=== PATIENT | female | born 1995 | race Caucasian/White ===

== ENCOUNTER 2016-12-10 13:11 | Emergency (ER) | payer BC, OTHER ==
[~2016-12-10 13:11] MED LIST: BACTRIM DS TABL1 TA1 PO; BENTYL10 MG PO; IRON1 TA1 PO; MACROBID100 MG PO; MOTRIN400 MG; NAPROXEN PO; ORUDIS75 M1 PO; PHENERGAN25 MG PO; PRENATAL VIT PO; PYRIDIUM PO; PYRIDIUM100 MG PO; TAMIFLU75 M1 PO; ZOFRANODT PO
[2016-12-26] MEDS ORDERED: NO MEDICATIONS (11:11)
== END 2016-12-10 13:15 | disposition home or self-care (01) ==
LOC: SED 13:11
DX: S86.911A Strain of unspecified muscle(s) and tendon(s) at lower leg level, right leg, initial encounter (principal); S86.912A Strain of unspecified muscle(s) and tendon(s) at lower leg level, left leg, initial encounter; X58.XXXA Exposure to other specified factors, initial encounter; Z88.0 Allergy status to penicillin; Z88.1 Allergy status to other antibiotic agents
CPT/HCPCS: 99282; 99283

== ENCOUNTER 2016-12-26 11:56 | Emergency (ER) | payer BC, OTHER ==
[~2016-12-26 11:56] MED LIST changes: +NO MEDICATIONS
[2016-12-26 13:26] LABS: URINE SOURCE CLEAN CATCH
[2016-12-26 13:30] LABS: URINE APPEARANCE CLEAR; URINE BILIRUBIN NEG (NEG); URINE BLOOD 2+ (NEG); URINE COLOR YELLOW; URINE GLUCOSE NEG (NORM); URINE KETONE NEG (NEG); URINE LEUKOCYTE ESTERASE NEG (NEG); URINE NITRATE NEG (NEG); URINE PROTEIN NEG (NEG); URINE SPECIFIC GRAVITY 1.025 (1.003-1.035); URINE UROBILINOGEN 0.2 MG/DL (NORM)
[2016-12-26 13:32] LABS: MICRO INDICATED? YES
[2016-12-26 13:47] LABS: URINE BACTERIA NEG (NEG); URINE RBC 0-2 /[HPF] (0-2); URINE SQUAMOUS EPITHELIAL CELL MODERATE /[HPF]; URINE WBC 0-2 /[HPF] (0-5)
== END 2016-12-26 14:37 | disposition home or self-care (01) ==
LOC: SED 11:56
PROVIDERS: Emergency Medicine
DX: K52.9 Noninfective gastroenteritis and colitis, unspecified (principal); Z88.0 Allergy status to penicillin; Z88.1 Allergy status to other antibiotic agents
CPT/HCPCS: 36415; 81003; 84703; 96361; 96374; 96375; 99284; J2405; J2765

== ENCOUNTER 2017-03-01 10:37 | Emergency (ER) | payer BC, OTHER ==
--- NOTE | ~2017-03-01 | CR230 ---
[facility] A Service of [facility] & [facility] RADIOLOGY TEXT RESULTS PATIENT: REMY CONN LOCATION: [facility] : 94 UNIT #: [id number] AGE: [address]: Maia Jovel SEX: F ORDER DR: [id number] [facility] [address] [place], [place] [address] [id number] E MR#: [id number] Acc #: [id number] NAME: REMY CONN. : 1995 SEX: F STUDY DATE/TIME: 03/01/2017 11:27 UNIT: [facility] ROOM: STUDY DESCRIPTION: CR Shoulder Min 2 View Rt Attending Physician: Maia Jovel Pa-C Ordering Physician: Eleazar Acosta M.D. Primary Care Physician: [facility], MEDICAL IMAGING REPORT This report is preliminary unless electronic signature is present EXAM Right shoulder series 03/01/2017 HISTORY Trauma. Pain in both shoulder and elbow, hurt at work. Twisted, got painful, kept working until unable to move it. Symptoms began today. TECHNIQUE AP internal and external rotation views of the right shoulder presented with transscapular view. FINDINGS No traumatic fracture or malalignment. Acromioclavicular and glenohumeral joint relationships appear normal. Periarticular soft tissues unremarkable. Visualized bony thorax intact. Visualized pulmonary parenchyma clear. If it would assist in patient management, shoulder could be further evaluated with elective MRI. Dictated by... Cosmo Jurado M.D. THIS IS AN ELECTRONICALLY VERIFIED REPORT Cosmo Jurado M.D. at 03/02/2017 6:42 PM WILLARD/ryder TD: 03/01/2017 13:29 JOB #: [id number] MEDICAL IMAGING REPORT Page 1 of 1 COPY
--- NOTE | ~2017-03-01 | CR94 ---
[facility] A Service of [facility] & [facility] RADIOLOGY TEXT RESULTS PATIENT: REMY CONN LOCATION: [facility] : 94 UNIT #: [id number] AGE: [address]: Maia Jovel SEX: F ORDER DR: [id number] [facility] [address] [place], [place] [address] [id number] E MR#: [id number] Acc #: [id number] NAME: REMY CONN. : 1995 SEX: F STUDY DATE/TIME: 03/01/2017 11:28 UNIT: [facility] ROOM: STUDY DESCRIPTION: CR Elbow Min 3 Views Rt Attending Physician: Maia Jovel Pa-C Ordering Physician: Eleazar Acosta M.D. Primary Care Physician: [facility], MEDICAL IMAGING REPORT This report is preliminary unless electronic signature is present EXAM Right elbow series, 03/01/2017. HISTORY Pain; hurt at work. Twisted, got painful, kept working until unable to move it. FINDINGS AP, lateral, and oblique radiographs of the right elbow are presented. Normal bony mineralization. Alignment normal. No fracture. Joint spaces intact. No traumatic malalignment. No acute soft tissue abnormality. Dictated by... Cosmo Jurado M.D. THIS IS AN ELECTRONICALLY VERIFIED REPORT Cosmo Jurado M.D. at 03/02/2017 6:42 PM Tigist TD: 03/01/2017 13:51 JOB #: [id number] MEDICAL IMAGING REPORT Page 1 of 1 COPY
== END 2017-03-01 13:30 | disposition home or self-care (01) ==
LOC: CED 10:37 → CFTX 10:37
DX: S46.911A Strain of unspecified muscle, fascia and tendon at shoulder and upper arm level, right arm, initial encounter (principal); Z88.0 Allergy status to penicillin; Z88.1 Allergy status to other antibiotic agents; X58.XXXA Exposure to other specified factors, initial encounter; Y93.89 Activity, other specified; Y92.69 Other specified industrial and construction area as the place of occurrence of the external cause; Y99.0 Civilian activity done for income or pay
CPT/HCPCS: 29105; 73030; 73080; 99283

== ENCOUNTER 2017-04-25 14:03 | Emergency (ER) | payer OTHER ==
[~2017-04-25] VITALS: Ht 170.2 cm; Wt 81.6 kg
--- NOTE | ~2017-04-25 | CR63 ---
[facility] A Service [facility] RADIOLOGY TEXT RESULTS PATIENT: REMY CONN LOCATION: [facility] : [birth year] UNIT #: [id number] AGE: [address]: Katerin Kahn SEX: F ORDER DR: [id number] [facility] [address] [place], [place] [address] [id number] E MR#: [id number] Acc #: [id number] NAME: REMY CONN. : 1995 SEX: F STUDY DATE/TIME: 04/25/2017 14:37 UNIT: [facility] ROOM: STUDY DESCRIPTION: CR Chest 2 View Attending Physician: Katerin Kahn P.A.-C. Ordering Physician: Katerin Kahn P.A.-C. MEDICAL IMAGING REPORT This report is preliminary unless electronic signature is present EXAM Chest 2 views dated 04/25/2017. COMPARISON Chest 2 views from 01/25/2011. HISTORY Cough, congestion and shortness of air for a day. FINDINGS 2 views of the chest were obtained. PA and lateral examination of the chest upright shows a good expansion of the parenchyma with a normal distribution of the pulmonary vascularity. There is no indication of congestion, effusion, infiltrate, tumor, or nodular density. The pleural reflections and diaphragmatic contours are normal. The cardiac silhouette and mediastinal anatomy is within normal limits. IMPRESSION Normal chest. Dictated by... Trina Rocha M.D. THIS IS AN ELECTRONICALLY VERIFIED REPORT Trina Rocha M.D. at 04/26/2017 9:32 PM CPR/pcl TD: 04/25/2017 22:20 JOB #: [id number] MEDICAL IMAGING REPORT [facility] A Service [facility] RADIOLOGY TEXT RESULTS PATIENT: REMY CONN LOCATION: [facility] : 94 UNIT #: [id number] AGE: [address]: Katerin Kahn SEX: F ORDER DR: Page 1 of 1 COPY
[2017-04-25 14:56] LABS: INFLUENZA A NEG (NEG); INFLUENZA B NEG (NEG)
== END 2017-04-25 15:16 | disposition home or self-care (01) ==
LOC: CFTX 14:03 → CED 14:03 → CFTX 14:26
PROVIDERS: Physician Assistant
DX: J06.9 Acute upper respiratory infection, unspecified (principal); K21.9 Gastro-esophageal reflux disease without esophagitis; F17.210 Nicotine dependence, cigarettes, uncomplicated; Z88.0 Allergy status to penicillin
CPT/HCPCS: 71020; 87651; 87804; 99283